=== PATIENT | female | born 1990 | race Caucasian/White ===

== ENCOUNTER 2017-07-26 14:28 | Emergency (ER) | payer BC ==
[2017-07-26 14:30] VITALS: BP 144/83; PULSE 118; RESP 16; TEMP 98.2; O2SAT 99
[2017-07-26] MEDS ORDERED: DOXY1CAP74 PO (15:01)
[2017-07-26] MEDS ORDERED: SULF1TAB23 PO (15:01)
[2017-07-26] MEDS ORDERED: HYDR-3516 PO (15:01)
[2017-07-26 15:07] VITALS: BP 133/60; PULSE 108; RESP 18; O2SAT 100
--- NOTE | 2017-07-26 15:15 | RADRPT ---
EXAM DATE/TIME: 07/26/2017 14:50 [facility] COMPARISON: No previous studies available for comparison. INDICATIONS : Abscess. MEDICAL HISTORY : None. SURGICAL HISTORY : None. ENCOUNTER: Initial ACUITY: > 1 year PAIN SCORE: 10/10 LOCATION: Pylonidal area. AREA EVALUATED: Pylonidal area. FINDINGS: Examination of the patient's buttock area with dedicated and focused attention to the area of the pal pable lump demonstrates a mixed echogenic mass measures 5.4 x 2.5 cm in size. This is not clearly flu id and probably not amenable to percutaneous guided drainage. CONCLUSION: Large complex mass could be a complex pilonidal cyst or possibly infected. Pal Ambrose MD on July 26, 2017 at 15:12 Board Certified Radiologist. This report was verified electronically.
--- NOTE | 2017-07-26 15:38 | PD ---
Physical Exam Narrative GENERAL: Well-nourished, well-developed patient. SKIN: Painful nonindurated palpable area to upper portion of the gluteal cleft noted without overlying cellulitis, no crepitus HEAD: Normocephalic and atraumatic. EYES: No injection or drainage. ENT: No nasal drainage noted. NECK: Supple, trachea midline. CARDIOVASCULAR: Regular rate and rhythm RESPIRATORY: No increased effort. No accessory muscle use. Data Data Last Documented VS Vital Signs Date Time Temp Pulse Resp B/P (MAP) Pulse Ox O2 Delivery O2 Flow Rate FiO2 07/26/17 15:07 108 18 133/60 (84) 100 Room Air 07/26/17 14:30 98.2 Orders Orders Us Soft Tissue (07/26/17 ) Ed Discharge Order (07/26/17 15:33) MDM Supervised Visit with RENY: Yes Narrative Course I, Dr. moise, have reviewed the advance practice practitioner's documentation and am in agreement, met with the patient face to face, made the diagnosis, and the medical decision making was done by me. *My assessment and Findings: 26-year-old female with pilonidal cyst already draining on antibiotics. Ultrasound shows area that is not amendable to percutaneous drainage. Discussed with her surgeon and she will follow-up outpatient. Physician Communication Physician Communication Dr. clayton states to have patient follow in the office Thursday and continue current care Diagnosis Primary Impression: Pilonidal cyst Med/Other Pt SpecificInfo: No Change to Meds Jadyn Moise MD Jul 26, 2017 15:38
--- NOTE | 2017-07-26 15:40 | PD ---
HPI Chief Complaint: Lump, Cyst, Hernia Time Seen by Provider: 14:37 Travel History International Travel<30 days: No Contact w/Intl Traveler<30days: No Traveled to known affect area: No History of Present Illness HPI 26-year-old female that presents to the ED for evaluation of possible ultrasound for cyst on the buttocks. Patient was seen at urgent care 2. Per patient she was sent here by the physician at the urgent care secondary to wanting an ultrasound as patient has had incision and drainage 2 on that same cyst with minimal drainage. Patient follows with Dr. Santos for general surgery and has seen him before for it. She has had no definitive surgery for the past medical cyst. She comes here with paperwork from the urgent care. Patient denies any other medical issues. No chest pain or shortness of breath. She states that her pain is under control with the Lortab that was given to her. She's been taking doxycycline and Bactrim prescribed to her yesterday. She denies any other medical issues. Per patient her pain currently is 4 out of 10. Gets to be severe 10 out of 10 when she sits on it. No fevers chills or sweats. States compliance with the medications given to her. PFSH Past Medical History Medical other: Yes ("CYSTS") ?: Not LMP: 06/26/17 Past Surgical History Surgical History: No Previous Surgery Social History Alcohol Use: Yes ("OCCASIONALLY") Tobacco Use: No Substance Use: No Allergies-Medications (Allergen,Severity, Reaction): Coded Allergies: No Known Allergies (Unverified , 07/26/17) Reported Meds & Prescriptions Reported Meds & Active Scripts Active Reported Hydrocodone-Acetaminophen 5-325 mg Tab 1 Tab PO Q6H PRN Doxycycline 40 Mg Cap 100 Mg PO BID Sulfamethoxazole-Trimethoprim 800-160 Mg Tab 1 Tab PO BID Review of Systems Except as stated in HPI: all other systems reviewed are Neg Physical Exam Narrative GENERAL: SKIN: Warm and dry. Patient has an erythema and swelling noted on the rectal fold. Patient has an incision that is draining blood but no purulence. Patient does have induration in the area but does not appear to have fluid. Slightly tender to touch. HEAD: Atraumatic. Normocephalic. EYES: Pupils equal and round. No scleral icterus. No injection or drainage. ENT: No nasal bleeding or discharge. Mucous membranes pink and moist. Tongue is midline. No uvula deviation. NECK: Trachea midline. No JVD. CARDIOVASCULAR: Regular rate and rhythm. RESPIRATORY: No accessory muscle use. Clear to auscultation. Breath sounds equal bilaterally. GASTROINTESTINAL: Abdomen soft, non-tender, nondistended. Hepatic and splenic margins not palpable. MUSCULOSKELETAL: Extremities without clubbing, cyanosis, or edema. No obvious deformities. Patient has full range of motion of the upper and lower extremities bilaterally. 2+ pulses bilaterally. NEUROLOGICAL: Awake and alert. No obvious cranial nerve deficits. Motor grossly within normal limits. Five out of 5 muscle strength in the arms and legs. Normal speech. PSYCHIATRIC: Appropriate mood and affect; insight and judgment normal. Data Data Last Documented VS Vital Signs Date Time Temp Pulse Resp B/P (MAP) Pulse Ox O2 Delivery O2 Flow Rate FiO2 07/26/17 15:07 108 18 133/60 (84) 100 Room Air 07/26/17 14:30 98.2 Orders Orders Us Soft Tissue (07/26/17 ) Ed Discharge Order (07/26/17 15:33) MDM Medical Decision Making Medical Screen Exam Complete: Yes Emergency Medical Condition: Yes Medical Record Reviewed: Yes Interpretation(s) Last Impressions Soft Tissue Ultrasound 07/26/17 0000 Signed Impressions: Service Date/Time: Wednesday, July 26, 2017 14:50 - CONCLUSION: Large complex mass could be a complex pilonidal cyst or possibly infected. Pal Ambrose MD Differential Diagnosis Abscess versus bilateral cyst versus mass Narrative Course 26-year-old female that presents to the ED for evaluation of possible pilonydal cyst. patient was properly examined and was found to have bilateral cyst. Ultrasound was ordered which show a mass that is not amenable to percutaneous drainage. Case was discussed in my attending Dr. Serrano who spoke with Dr. Santos the patient's surgeon. Once the patient to follow up on Thursday and continue antibiotics as well as pain medication as prescribed by the urgent care. This was discussed in length with the patient who agrees with plan. Wound care was endorsed. Follow with PCP. No need for more incision and drainage. See ED worsening symptoms. Diagnosis Primary Impression: Pilonidal cyst Patient Instructions: General Instructions Additional Instructions: Continue taking her medications. Change dressings daily. Follow with Dr. Santos on [place] for further evaluation. See ED worsening symptoms. Continue using ice or warm compresses. Med/Other Pt SpecificInfo: No Change to Meds Disposition: 01 DISCHARGE HOME Condition: Stable Edison Burgos Jul 26, 2017 15:40
== END 2017-07-26 16:16 | disposition home or self-care (01) ==
LOC: NEPC 14:28
DX: L05.91 Pilonidal cyst without abscess (principal); Z79.899 Other long term (current) drug therapy
CPT/HCPCS: 76999